=== PATIENT | male | born 1965 | race Caucasian/White ===

== ENCOUNTER 2019-12-18 10:04 | Observation (INO) ==
[2019-12-18] MEDS ORDERED: ASPIRIN 325 MG TABLET PO STA (10:54)
[2019-12-18] MEDS ORDERED: FUROSEMIDE 40 MG/4 ML VIAL IV STA (10:54)
[2019-12-18] MEDS ORDERED: ENOXAPARIN 100 MG/ML SYRINGE SUBCUT STA (10:54)
[2019-12-18] MEDS ORDERED: ASPIRIN 325 MG TABLET ONE (10:57)
[2019-12-18] MEDS ORDERED: FUROSEMIDE 40 MG/4 ML VIAL ONE (10:57)
[2019-12-18] MEDS ORDERED: ENOXAPARIN 80 MG/0.8 ML SYRINGE SUBCUT ONE (10:57)
[2019-12-18 11:02] LABS: Basophils % 0.3 % (0.0-0.8); Eosinophils % 0.1 % (0.00-10.9); Hematocrit 50.8 VOL% (42.0-52.0); Immature Granulocytes % 0.4 %; Immature Granulocytes Absolute 0.04 #; Lymphocytes # 0.9 10*3/uL (1.4-4.0); Lymphocytes % 8.7 % (21.2-54.2); Mean Corpuscular HGB Conc 33.5 GM/DL (32-36); Mean Corpuscular Volume 90.2 FL (87-102); Mean Platelet Volume 10.8 FL (9.6-12.0); Monocytes % 3.6 % (1.7-12.7); Neutrophils % 86.9 % (38.7-73.9); Platelet Count 285 T/CUMM (130-400); Red Blood Count 5.63 MC/CUMM (3.8-5.5); Red Cell Distribution Width 12.4 % (9.3-17.3); White Blood Count 10.8 T/CUMM (4-12)
[2019-12-18 11:47] LABS: Albumin 3.5 G/DL (3.4-5.0); Bilirubin,Total 1.8 MG/DL (0.2-1.0); Osmolality,Calculated 272.2 MOS/KG (273-304); Total Protein 7.2 G/DL (6.4-8.3)
[2019-12-18] MEDS ORDERED: ONDANSETRON 4 MG/2 ML VIAL IV PRN (12:23)
[2019-12-18] MEDS ORDERED: ACETAMINOPHEN 325 MG TABLET PO PRN (12:23)
[2019-12-18] MEDS ORDERED: PROMETHAZINE 25 MG/1 ML VIAL IM PRN (12:23)
[2019-12-18] MEDS ORDERED: ENOXAPARIN 40 MG/0.4 ML SYRINGE SUBCUT SCH (12:30)
[2019-12-18 13:08] LABS: Apearance,Urine CLEAR (Clear); Bacteria,Urine Occasional /HPF (Few); Bilirubin,Urine Negative (Negative); Blood, Urine Negative (Negative); Glucose,Urine (UA) Negative (Negative); Ketones,Urine Negative (Negative); Nitrite,Urine Negative (Negative); Protein,Urine Negative; RBC,Urine <1 /HPF (0-4); Squamous Epithelial Cell,Urine Occasional /HPF (0-10); Urine Color Yellow (Yellow); Urine Specific Gravity 1.012 (1.001-1.035); Urine Urobilinogen < 2.0 EU/DL (0.2-1.0); WBC,Urine 1 /HPF (0-6)
[2019-12-18] MEDS ORDERED: LORazepam 2 MG/1 ML VIAL IV PRN (13:24)
[2019-12-18] MEDS ORDERED: ALBUTEROL 2.5 MG/3 ML NEB RESP TX PRN (13:25)
[2019-12-18] MEDS ORDERED: INFLUENZA VIRUS VACCINE 0.5 ML SYRINGE IM ONE (14:04)
[2019-12-18 14:28] LABS: Troponin I 0.037 NG/ML (0.00-0.045)
[2019-12-18 14:37] LABS: Barbiturates Screen,Urine Negative (Negative); Benzodiazepines Screen,Urine Negative (Negative); Cannabinoid Screen,Urine Positive (Negative); Opiate Screen,Urine Negative (Negative); Phencyclidine Screen,Urine Negative (Negative)
[2019-12-18] MEDS: carvediloL 6.25 MG TABLET PO SCH ×2 (14:40→21:49)
[2019-12-18] MEDS: FOLIC ACID 1 MG TABLET PO SCH (14:40)
[2019-12-18] MEDS: THIAMINE 100 MG TABLET PO SCH (14:40)
[2019-12-18] MEDS ORDERED: diphenhydrAMINE CAP 25 MG CAPSULE PO ONE (15:07)
[2019-12-18] MEDS ORDERED: DIAZEPAM 5 MG TABLET PO ONE (15:07)
[2019-12-18] MEDS ORDERED: HEPARIN/NACL 0.9% 2 UNITS/ML 1,000 ML IV ONE (15:18)
[2019-12-18] MEDS ORDERED: LIDOCAINE 1% 20 ML VIAL ONE (15:18)
[2019-12-18] MEDS ORDERED: SODIUM CHLORIDE 0.9% 1,000 ML IV SCH (15:30)
[2019-12-18] MEDS ORDERED: VERAPAMIL 5 MG/2 ML VIAL ONE (16:31)
[2019-12-18] MEDS ORDERED: NITROGLYCERIN DRIP 50 MG/250 ML BOTTLE IV ONE (16:31)
[2019-12-18] MEDS ORDERED: MIDAZOLAM 2 MG/2 ML VIAL ONE (16:35)
[2019-12-18] MEDS ORDERED: fentaNYL 100 MCG/2 ML VIAL ONE (16:35)
[2019-12-18] MEDS ORDERED: ENOXAPARIN 60 MG/0.6 ML SYRINGE ONE (16:39)
[2019-12-18] MEDS: FUROSEMIDE 40 MG/4 ML VIAL IV SCH (18:32)
[2019-12-18] MEDS: SACUBITRIL/VALSARTAN 49-51 MG TABLET PO SCH (21:49)
[2019-12-19 04:39] LABS: Basophils # 0.1 10*3/uL (0.0-0.2); Basophils % 0.9 % (0.0-0.8); Eosinophils # 0.1 10*3/uL (0.0-0.87); Eosinophils % 1.1 % (0.00-10.9); Hematocrit 50.9 VOL% (42.0-52.0); Hemoglobin 17.5 GM/DL (14.0-18.0); Immature Granulocytes % 0.1 %; Immature Granulocytes Absolute 0.01 #; Lymphocytes # 3.4 10*3/uL (1.4-4.0); Lymphocytes % 41.8 % (21.2-54.2); Mean Corpuscular HGB Conc 34.4 GM/DL (32-36); Mean Corpuscular Volume 88.5 FL (87-102); Mean Platelet Volume 10.8 FL (9.6-12.0); Monocytes % 8.7 % (1.7-12.7); Neutrophils % 47.4 % (38.7-73.9); Platelet Count 279 T/CUMM (130-400); Red Blood Count 5.75 MC/CUMM (3.8-5.5); Red Cell Distribution Width 12.4 % (9.3-17.3); White Blood Count 8.2 T/CUMM (4-12)
[2019-12-19 05:08] LABS: Calcium 8.7 MG/DL (8.5-10.1); Osmolality,Calculated 272.8 MOS/KG (273-304); Risk Ratio 2.05; VLDL CHOLESTEROL 15.4 MG/DL
[2019-12-19 07:14] VITALS: BP 117/81
[2019-12-19] MEDS: FUROSEMIDE 40 MG/4 ML VIAL IV SCH (08:14)
[2019-12-19] MEDS: FOLIC ACID 1 MG TABLET PO SCH (08:16)
[2019-12-19] MEDS: carvediloL 6.25 MG TABLET PO SCH (08:17)
[2019-12-19] MEDS: SACUBITRIL/VALSARTAN 49-51 MG TABLET PO SCH (08:17)
[2019-12-19] MEDS: THIAMINE 100 MG TABLET PO SCH (08:17)
[2019-12-19] MEDS ORDERED: ASCORBIC ACID 500 MG TABLET PO SCH (09:00)
[2019-12-19] MEDS ORDERED: ASPIRIN EC 81 MG TABLET PO SCH (09:00)
[2019-12-19] MEDS ORDERED: GARLIC 500 MG PO SCH (09:00)
[2019-12-19] MEDS ORDERED: ENOXAPARIN 40 MG/0.4 ML SYRINGE SUBCUT SCH (12:30)
== END 2019-12-19 12:19 | disposition home or self-care (01) ==
LOC: N.ED 10:04 → N.EDINP 10:04 → N.2W 12:54
PROVIDERS: ADMIT Internal Medicine; ATTEND Internal Medicine
PROC: CLCCHCL (ICD-10-PCS; 2019-12-18 17:15)